=== PATIENT | female | born 1975 | race Caucasian/White ===

== ENCOUNTER 2016-06-30 13:30 | Emergency (ER) | payer OTHER ==
[~2016-06-30] VITALS: Ht 154.9 cm; Wt 91.4 kg
[~2016-06-30 13:30] MED LIST: ALBU.5I NEB; ALPR0.5T3 PO; ATOR40TA16 PO; BUPR150XL PO; CEPH-460 PO; DEXI60CA PO; DOXE50CA3 PO; FOLI1TAB4 PO; GABA300C5 PO; HYDR-3534 PO; LEVO100T5 PO; LYRI150C PO; METO50TA PO; POTA-88 PO; TIZA4CAP3 PO; ZOFR4TAB3 SL
[2016-06-30 13:34] VITALS: BP 128/83; PULSE 117; RESP 18; TEMP 98.5; O2SAT 98
--- NOTE | 2016-06-30 13:57 | PD ---
HPI Chief Complaint: Injury Time Seen by Provider: 13:48 Travel History International Travel<30 days: No Contact w/Intl Traveler<30days: No Traveled to known affect area: No History of Present Illness HPI Well 40-year-old woman tripped and fell in her right arm. Sclerae right wrist pain and swelling. States happened just before arrival. She otherwise has been feeling generally well and healthy. Is mostly denies being assaulted. She has pain with movement of the wrist. She otherwise has been feeling generally well and healthy. No other complaints. History Past Medical History Narrative Medical COPD Neuropathy Hypertension on hyperlipidemia Bipolar/depression/anxiety/PTSD Menopausal: Yes : 3 Para: 2 Social History Alcohol Use: No Tobacco Use: Yes (1PPD) Allergies-Medications (Allergen,Severity, Reaction): Coded Allergies: Benadryl (Verified Allergy, Mild, SHAKEY FEELING, 06/30/16) Compazine (Verified Allergy, Mild, SHAKEY FEELING, 06/30/16) Cipro (Verified Adverse Reaction, Mild, GI UPSET, 06/30/16) Toradol (Verified Adverse Reaction, Mild, Nausea/Vomiting, 06/30/16) Reported Meds & Prescriptions Reported Meds & Active Scripts Active Keflex (Cephalexin) 500 Mg Cap 500 Mg PO Q12H 7 Days Zofran Odt (Ondansetron Odt) 4 Mg Tab 4 Mg SL Q8HR PRN Lortab (Hydrocodone-Acetaminophen) 7.5-325 Mg Tab 1 Tab PO Q4H PRN Reported Gabapentin 300 Mg Cap 300 Mg PO TID Tizanidine (Tizanidine HCl) 4 Mg Cap 4 Mg PO TID Doxepin (Doxepin HCl) 50 Mg Cap 50 Mg PO BID ([place]) Lyrica (Pregabalin) 150 Mg Cap 150 Mg PO BID Klor-Con M10 (Potassium Chloride Microencaps) 10 Meq Tab 10 Meq PO DAILY Metoprolol Tartrate 50 Mg Tab 50 Mg PO BID Levothyroxine (Levothyroxine Sodium) 100 Mcg Tab 100 Mcg PO DAILY Folate (Folic Acid) 1 Mg Tab 1 Mg PO DAILY Dexilant (Dexlansoprazole) 60 Mg Cap 60 Mg PO DAILY Wellbutrin Xl 24 HR (Bupropion HCl) 150 Mg Tab 150 Mg PO DAILY Atorvastatin (Atorvastatin Calcium) 40 Mg Tab 40 Mg PO HS Alprazolam 0.5 Mg Tab 0.5 Mg PO HS Albuterol Neb (Albuterol Sulfate) 2.5 Mg/0.5 Ml Neb 2.5 Mg NEB Q12H PRN Note: The Albuterol Sulfate Inhalation Solution is concentrated and must be diluted. Read complete instructions carefully before using. Review of Systems Except as stated in HPI: all other systems reviewed are Neg Physical Exam Narrative GENERAL: 40 year-old woman, no acute distress. SKIN: Warm and dry. CARDIOVASCULAR: Warm and well perfused. RESPIRATORY: Normal rate and effort. MUSCULOSKELETAL: Focused examination of the right upper shoulder reveals erythema and swelling with some ecchymosis over the ulnar aspect of the wrist, surrounding ulnar styloid and just proximal to it. There is significant tenderness. There is pain with range of motion of the wrist and with clenching the hand. She has full range of motion however. Radial/ulnar/median nerve strength is intact. Good sensation throughout. Good capillary refill. NEUROLOGICAL: Awake and alert. No gross deficits. Data Data Last Documented VS Vital Signs Date Time Temp Pulse Resp B/P Pulse Ox O2 Delivery O2 Flow Rate FiO2 06/30/16 13:53 Room Air 06/30/16 13:34 98.5 117 18 128/83 98 Orders Wrist, Complete ([id number]) (06/30/16 ) Acetamin-Hydrocod 325-5 Mg ([place] 5-325 (06/30/16 14:00) MDM Medical Decision Making Medical Screen Exam Complete: Yes Emergency Medical Condition: Yes Interpretation(s) Right wrist x-ray: No acute disease Differential Diagnosis Right wrist fracture, contusion, strain or sprain, other Narrative Course Medical decision making With year-old woman with troponin right wrist, likely fractured. We'll check x- ray. Pain control. Likely outpatient referral to orthopedics. Diagnosis Primary Impression: Right wrist pain Additional Instructions: Take Naprosyn as needed for pain. Follow-up with her primary doctor in 7-10 days ago not completely well. Return to the emergency department for any new or worsening symptoms. Med/Other Pt SpecificInfo: Prescription(s) given Scripts Naproxen (Naprosyn)500 Mg [id number] Mg PO BID PRN (PAIN SCALE 1 TO 10) #20 TAB Prov:Christopher Ayala MD 1/12/17 Disposition: 01 DISCHARGE HOME Condition: Stable Christopher Ayala MD Jun 30, 2016 13:57
[2016-06-30] MEDS ORDERED: ACETAMINOPHEN/HYDROcodone 325 MG/5 MG TAB PO ONE (14:00)
--- NOTE | 2016-06-30 14:19 | RADHPO ---
EXAM DATE/TIME: 06/30/2016 14:06 [facility] COMPARISON: No previous studies available for comparison. INDICATIONS : Right wrist pain, after fall down stairs. MEDICAL HISTORY : None. SURGICAL HISTORY : None. ENCOUNTER: Initial ACUITY: 1 day PAIN SCORE: 8/10 LOCATION: Right wrist FINDINGS: Three view examination of the right wrist demonstrates no soft tissue swelling, dislocation, or fract ure. The carpal bones are in normal alignment. The joint spaces are maintained. Bony mineralizatio n is normal. CONCLUSION: No acute disease. Chivo Lopez MD on June 30, 2016 at 14:18 Board Certified Radiologist. This report was verified electronically.
[2016-06-30] MEDS ORDERED: NAPR500 PO (14:23)
[2016-06-30 15:00] VITALS: BP 126/86; RESP 16
== END 2016-06-30 15:03 | disposition home or self-care (01) ==
LOC: PHEFT 13:30
DX: M25.531 Pain in right wrist (principal); I10 Essential (primary) hypertension; J44.9 Chronic obstructive pulmonary disease, unspecified; F17.210 Nicotine dependence, cigarettes, uncomplicated; W01.0XXA Fall on same level from slipping, tripping and stumbling without subsequent striking against object, initial encounter; Y93.9 Activity, unspecified; Y92.9 Unspecified place or not applicable
CPT/HCPCS: 73110; 99283